=== PATIENT | male | born 1960 | race Caucasian/White ===

== ENCOUNTER → 2016-11-03 | Outpatient (CLI) | payer OTHER ==
--- NOTE | ~2016-11-03 | PFT ---
[id number] [facility] [address] [place], [place] [address] [id number] O MR#: [id number] NAME: ERIC ARRIOLA ROOM: SEX: M STUDY DATE/TIME: 11/03/2016 : 1960 AGE: 55 STUDY DESCRIPTION: Attending Physician: Mando Asher M.D. Referring Physician: Mando Asher M.D. Primary Care Physician: Mando Asher M.D. PULMONARY DIAGNOSTIC REPORT EXAM Pulmonary function test. Spirometry is suggestive of moderate obstructive defect. No significant response to bronchodilators. FEV1 is 2.29 L, 61% of predicated. Flow volume loops consistent with an obstructive defect. Lung volumes are consistent with air trapping. Diffusion capacity is moderately reduced. Changes are consistent with emphysema. Dictated by... Eric Blanco M.D. MOUNA/ts TD: 11/04/2016 07:44 JOB #: [id number] PULMONARY DIAGNOSTIC REPORT Page 1 of 1
== END | disposition home or self-care (01) ==
LOC: CRC 07:31
DX: J44.9 Chronic obstructive pulmonary disease, unspecified (principal)
CPT/HCPCS: 94060; 94726; 94729